=== PATIENT | female | born 1985 | race Asian ===

== ENCOUNTER 2017-03-30 17:39 | Emergency (ER) | payer BC ==
[2017-03-30 19:15] LABS: BASOPHIL % 0.3 % (0-2); PLATELET COUNT 157 x10^3mcL (130-400); RED CELL DISTRIBUTION WIDTH 13.6 % (11.5-14.5)
[2017-03-30 19:27] LABS: CALCIUM 8.3 mg/dL (8.5-10.1); CHLORIDE SERUM 99 mmol/L (98-107); CREATININE SERUM 0.6 mg/dL (0.6-1.0); GFR1 > 60 mL/min; GLUCOSE SERUM 99 mg/dL (74-106); POTASSIUM SERUM 3.4 mmol/L (3.5-5.1); SODIUM SERUM 134 mmol/L (136-145)
[2017-03-30 19:35] LABS: ALBUMIN 4.1 g/dL (3.4-5.0); ALKALINE PHOSPHATASE 46 U/L (46-116); ALT/SGPT 21 U/L (14-59); AST/SGOT 46 U/L (15-37); TOTAL PROTEIN, SERUM 7.2 g/dL (6.4-8.2)
[2017-03-30 21:22] VITALS: BP 121/79
== END 2017-03-30 21:22 | disposition home or self-care (01) ==
LOC: ED 17:39
PROVIDERS: Emergency Medicine
DX: R55 Syncope and collapse (principal); M32.9 Systemic lupus erythematosus, unspecified; E86.0 Dehydration; E87.6 Hypokalemia; I73.00 Raynaud's syndrome without gangrene
CPT/HCPCS: 36415; Q0092; Q0162